=== PATIENT | male | born 2000 ===

== ENCOUNTER 2024-09-11 19:37 | Emergency (ER) | payer SELFPAY ==
[2024-09-11] VITALS (15 sets, daily range): BP systolic 114–149; BP diastolic 79–92; PULSE 66–101; TEMP 36.8; O2SAT 99; BMI 29.8
--- NOTE | 2024-09-11 19:56 | ECG_ITS ---
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 Measurements Intervals [place] Rate: 101 P: 61 TN: 166 QRS: 88 QRSD: 96 T: 34 QT: 384 QTc: 442 Interpretive Statements 1120 Sinus tachycardia with Marked sinus arrhythmia 4068 Nonspecific Twave abnormality 9140 abnormal rhythm ECG No previous ECG available for comparison Electronically Signed On 09-12-2024 6:49:58 EST by YAHAIRA EDWARDS M.D.
--- NOTE | 2024-09-11 20:55 | ED.GENADUL1 ---
Documented by User: IDALIA Vanegas 09/11/24 21:43 HPI HPI - General Adult General Chief complaint: Chest Pain Stated complaint: CHEST PAINS Time Seen by Provider: 09/11/24 20:43 Source: patient Mode of arrival: walk-in Limitations: no limitations History of Present Illness HPI narrative: Patient is a 24-year-old male who presents to the emergency department for evaluation of chest tightness that began 2 hours prior to arrival. He states he was walking at a grocery store locally when he developed tightness over the left anterior chest. He states the pain is worse with deep breathing. He has not had any fevers, cough, hemoptysis. He denies any extremity swelling. He has no history of coronary artery disease, cardiopulmonary issues, DVT or PE. He does not use any medications. He denies tobacco abuse. No medications taken prior to arrival. He has no abdominal pain, nausea or vomiting. Related Data Allergies Allergy/AdvReac Type Severity Reaction Status Date / Time No Known Drug Allergies Allergy Verified 09/11/24 19:48 Opioid HPI Opioid Management Most Recent Opioid Data: No Data to Display Review of Systems ROS Constitutional Denies: fever or chills Ears, nose, mouth, and throat Denies: throat pain or nasal congestion Cardiovascular Reports: chest pain Respiratory Denies: shortness of breath or cough Gastrointestinal Denies: nausea or vomiting Musculoskeletal Denies: back pain or neck pain Integumentary/Breast Denies: rash Neurological Denies: numbness in extremities or weakness in extremities Hematologic/Lymphatic Denies: easy bruising or easy bleeding [facility] Social History Little interest or pleasure in doing things: not at all Feeling down, depressed, or hopeless: not at all Exam Narrative Exam Narrative: Gen.: Awake, alert, in no distress Head: Normocephalic, atraumatic ENT: Moist mucous membranes Respiratory: No respiratory distress, lungs clear bilaterally Cardio: Regular rate and rhythm Gastrointestinal: Abdomen is soft, nondistended and nontender to palpation Extremities: Moves extremities equally, no pedal edema Psych: Normal mood and affect Neuro: No focal neuro deficit Skin: Warm, dry, intact Constitutional Vital Signs, click to edit/add: Last Vital Signs Temp 98.2 F 09/11/24 19:48 Pulse 78 09/11/24 21:50 Resp 18 09/11/24 21:50 BP 139/92 H 09/11/24 21:30 Pulse Ox 99 09/11/24 19:50 O2 Del Method Room Air 09/11/24 19:48 Course Vital Signs Vital signs: Vital Signs Temperature 98.2 F 09/11/24 19:48 Pulse Rate 82 09/11/24 19:48 Blood Pressure 145/83 H 09/11/24 19:48 Pulse Oximetry 99 09/11/24 19:48 Oxygen Delivery Method Room Air 09/11/24 19:48 Temperature 98.2 F 09/11/24 19:48 Pulse Rate 78 09/11/24 21:50 Respiratory Rate 18 09/11/24 21:50 Blood Pressure 139/92 H 09/11/24 21:30 Pulse Oximetry 99 09/11/24 19:50 Oxygen Delivery Method Room Air 09/11/24 19:48 Medical Decision Making MDM Narrative Medical decision making narrative: 2142: This patient has a PERC score of 0 and is hemodynamically stable. Treated with Toradol for pleuritic type pain, EKG is unremarkable and labs are pending. Case is turned over to attending physician for disposition after results. SHARED APC VISIT, PHYSICIAN ATTESTATION: [id number] I performed a substantive part of the MDM during the patient?s E/M visit. I personally evaluated and examined the patient. I personally made or approved the documented management plan and acknowledge its risk of complications. Medical Records Medical records reviewed: Yes I reviewed the patient's medical records Lab Data Lab results reviewed: Yes I reviewed the patient's lab results Labs: Lab Results 09/11/24 Range/Units 21:12 WBC 9.9 (4.0-11.0) 10^3/uL RBC 5.52 (4.70-6.10) 10^6/uL Hgb 16.5 (14.0-18.0) g/dL Hct 48.3 (42.0-54.0) % MCV 87.5 (80.0-94.0) fL MCH 29.9 (25.9-34.0) pg MCHC 34.2 (29.9-35.2) g/dL RDW 11.7 (11.0-15.0) % Plt Count 196 (150-450) 10^3/uL MPV 10.2 (9.5-13.5) fL Neut % (Auto) 63.6 (43.0-75.0) % Lymph % (Auto) 28.8 (20.5-60.0) % [place] % (Auto) 5.9 (1.7-12.0) % Eos % (Auto) 1.1 (0.9-7.0) % Baso % (Auto) 0.3 (0.2-2.0) % Neut # (Auto) 6.3 (1.4-6.5) 10^3/uL Lymph # (Auto) 2.9 (1.2-3.8) 10^3/uL [place] # (Auto) 0.6 (0.3-0.8) 10^3/uL Eos # (Auto) 0.1 (0.0-0.7) 10^3/uL Baso # (Auto) 0.0 (0.0-0.1) 10^3/uL Abs Immat Gran (auto) 0.03 (0.00-0.03) 10^3/uL Imm/Tot Granulo (auto) 0.3 (0.0-0.5) % PT 12.4 H (9.0-11.6) sec INR 1.19 Sodium 141 (136-145) mmol/L Potassium 3.8 (3.5-5.1) mmol/L Chloride 103 (98-107) mmol/L Carbon Dioxide 28.4 (21.0-32.0) mmol/L Anion Gap 13.4 BUN 11.0 (7.0-18.0) mg/dL Creatinine 1.29 (0.70-1.30) mg/dL Est GFR ( Amer) >60 (>=60 mL/min/1.73m^2) Est GFR (Non-Af Amer) >60 (>=60 mL/min/1.73m^2) BUN/Creatinine Ratio 8.5 Glucose 105 (74-106) mg/dL Calcium 9.3 (8.5-10.1) mg/dL Total Bilirubin 0.5 (0.2-1.0) mg/dL AST 16 (15-37) U/L ALT 34 (16-63) U/L Alkaline Phosphatase 106 (46-116) U/L Troponin I High Sens <4.0 L (4.0-76.1) pg/mL Total Protein 7.8 (6.4-8.2) g/dL Albumin 4.3 (3.4-5.0) g/dL Globulin 3.5 g/dL Albumin/Globulin Ratio 1.2 Lipase 27.0 (16.0-77.0) U/L TSH 1.482 (0.358-3.740) uIU/mL ECG Data Attestation: I personally reviewed and interpreted this ECG as follows: (Normal sinus rhythm at a rate of 101, sinus arrhythmia, no acute ST elevation or ectopy. EKG reviewed by attending physician.) Discharge Plan Discharge Chief Complaint: Chest Pain Clinical Impression: Chest pain Patient Disposition: Home, Self-Care Time of Disposition Decision: 22:04 Print Language: Ecuadorean Instructions: Chest Pain (ED) Referrals: Praveen Victor MD [Primary Care Provider] - 1 week Documented by User: Vinay Duenas 09/11/24 22:04 HPI HPI - General Adult General Chief complaint: Chest Pain Stated complaint: CHEST PAINS Time Seen by Provider: 09/11/24 20:43 Related Data Allergies Allergy/AdvReac Type Severity Reaction Status Date / Time No Known Drug Allergies Allergy Verified 09/11/24 19:48 Opioid HPI Opioid Management Most Recent Opioid Data: No Data to Display PFSH PFSH Social History Little interest or pleasure in doing things: not at all Feeling down, depressed, or hopeless: not at all Exam Constitutional Vital Signs, click to edit/add: Last Vital Signs Temp 98.2 F 09/11/24 19:48 Pulse 78 09/11/24 21:50 Resp 18 09/11/24 21:50 BP 139/92 H 09/11/24 21:30 Pulse Ox 99 09/11/24 19:50 O2 Del Method Room Air 09/11/24 19:48 Course Vital Signs Vital signs: Vital Signs Temperature 98.2 F 09/11/24 19:48 Pulse Rate 82 09/11/24 19:48 Blood Pressure 145/83 H 09/11/24 19:48 Pulse Oximetry 99 09/11/24 19:48 Oxygen Delivery Method Room Air 09/11/24 19:48 Temperature 98.2 F 09/11/24 19:48 Pulse Rate 78 09/11/24 21:50 Respiratory Rate 18 09/11/24 21:50 Blood Pressure 139/92 H 09/11/24 21:30 Pulse Oximetry 99 09/11/24 19:50 Oxygen Delivery Method Room Air 09/11/24 19:48 Medical Decision Making MDM Narrative Medical decision making narrative: 2142: This patient has a PERC score of 0 and is hemodynamically stable. Treated with Toradol for pleuritic type pain, EKG is unremarkable and labs are pending. Case is turned over to attending physician for disposition after results. SHARED APC VISIT, PHYSICIAN ATTESTATION: [id number] I performed a substantive part of the MDM during the patient?s E/M visit. I personally evaluated and examined the patient. I personally made or approved the documented management plan and acknowledge its risk of complications. Attending physician note -patient's lab tests were unremarkable including negative troponin. He is PERC 0 and chest x-ray is unremarkable. Patient formed of results and discharged home. - DO Leobardo Lab Data Labs: Lab Results 09/11/24 Range/Units 21:12 WBC 9.9 (4.0-11.0) 10^3/uL RBC 5.52 (4.70-6.10) 10^6/uL Hgb 16.5 (14.0-18.0) g/dL Hct 48.3 (42.0-54.0) % MCV 87.5 (80.0-94.0) fL MCH 29.9 (25.9-34.0) pg MCHC 34.2 (29.9-35.2) g/dL RDW 11.7 (11.0-15.0) % Plt Count 196 (150-450) 10^3/uL MPV 10.2 (9.5-13.5) fL Neut % (Auto) 63.6 (43.0-75.0) % Lymph % (Auto) 28.8 (20.5-60.0) % [place] % (Auto) 5.9 (1.7-12.0) % Eos % (Auto) 1.1 (0.9-7.0) % Baso % (Auto) 0.3 (0.2-2.0) % Neut # (Auto) 6.3 (1.4-6.5) 10^3/uL Lymph # (Auto) 2.9 (1.2-3.8) 10^3/uL [place] # (Auto) 0.6 (0.3-0.8) 10^3/uL Eos # (Auto) 0.1 (0.0-0.7) 10^3/uL Baso # (Auto) 0.0 (0.0-0.1) 10^3/uL Abs Immat Gran (auto) 0.03 (0.00-0.03) 10^3/uL Imm/Tot Granulo (auto) 0.3 (0.0-0.5) % PT 12.4 H (9.0-11.6) sec INR 1.19 Sodium 141 (136-145) mmol/L Potassium 3.8 (3.5-5.1) mmol/L Chloride 103 (98-107) mmol/L Carbon Dioxide 28.4 (21.0-32.0) mmol/L Anion Gap 13.4 BUN 11.0 (7.0-18.0) mg/dL Creatinine 1.29 (0.70-1.30) mg/dL Est GFR ( Amer) >60 (>=60 mL/min/1.73m^2) Est GFR (Non-Af Amer) >60 (>=60 mL/min/1.73m^2) BUN/Creatinine Ratio 8.5 Glucose 105 (74-106) mg/dL Calcium 9.3 (8.5-10.1) mg/dL Total Bilirubin 0.5 (0.2-1.0) mg/dL AST 16 (15-37) U/L ALT 34 (16-63) U/L Alkaline Phosphatase 106 (46-116) U/L Troponin I High Sens <4.0 L (4.0-76.1) pg/mL Total Protein 7.8 (6.4-8.2) g/dL Albumin 4.3 (3.4-5.0) g/dL Globulin 3.5 g/dL Albumin/Globulin Ratio 1.2 Lipase 27.0 (16.0-77.0) U/L TSH 1.482 (0.358-3.740) uIU/mL Imaging Data Chest x-ray: Attestation: I personally reviewed and interpreted this imaging study as follows: My impression: nad -no pneumothorax, pneumonia, infiltrative process or effusion ECG Data Interpretation: EKG interpretation: Emergency Department physician interpretation. Sinus tachycardia at 101 bpm. Normal axis, normal intervals and nonspecific T wave abnormality without ST segment elevation or depression. Discharge Plan Discharge Chief Complaint: Chest Pain Clinical Impression: Chest pain Patient Disposition: Home, Self-Care Time of Disposition Decision: 22:04 Print Language: Ecuadorean Instructions: Chest Pain (ED) Referrals: Praveen Victor MD [Primary Care Provider] - 1 week
[2024-09-11] MEDS: KETOROLAC TROMETHAMINE 10 MG TABLET PO (21:05)
[2024-09-11 21:23] LABS: Basophils Percent Auto 0.3 % (0.2-2.0); Eosinophils Absolute Auto 0.1 10^3/uL (0.0-0.7); Eosinophils Percent Auto 1.1 % (0.9-7.0); Hematocrit 48.3 % (42.0-54.0); Hemoglobin 16.5 g/dL (14.0-18.0); Immature Granulocytes Abs Auto 0.03 10^3/uL (0.00-0.03); Immature Granulocytes Pct Auto 0.3 % (0.0-0.5); Lymphocytes Absolute Auto 2.9 10^3/uL (1.2-3.8); Lymphocytes Percent Auto 28.8 % (20.5-60.0); Mean Corpuscular HGB Conc 34.2 g/dL (29.9-35.2); Mean Corpuscular Hemoglobin 29.9 pg (25.9-34.0); Mean Corpuscular Volume 87.5 fL (80.0-94.0); Mean Platelet Volume 10.2 fL (9.5-13.5); Monocytes Absolute Auto 0.6 10^3/uL (0.3-0.8); Monocytes Percent Auto 5.9 % (1.7-12.0); Neutrophils Absolute Auto 6.3 10^3/uL (1.4-6.5); Neutrophils Percent Auto 63.6 % (43.0-75.0); Platelet Count 196 10^3/uL (150-450); Red Blood Count 5.52 10^6/uL (4.70-6.10); Red Cell Distribution Width 11.7 % (11.0-15.0); White Blood Count 9.9 10^3/uL (4.0-11.0)
[2024-09-11 21:36] LABS: INR 1.19; Prothrombin Time 12.4 sec (9.0-11.6)
[2024-09-11 21:44] LABS: Alanine Aminotransferase 34 U/L (16-63); Albumin Globulin Ratio 1.2; Albumin Level 4.3 g/dL (3.4-5.0); Alkaline Phosphatase 106 U/L (46-116); Anion Gap 13.4; Aspartate Amino Transferase 16 U/L (15-37); BUN Creatinine Ratio 8.5; Bilirubin Total 0.5 mg/dL (0.2-1.0); Calcium 9.3 mg/dL (8.5-10.1); Carbon Dioxide 28.4 mmol/L (21.0-32.0); Chloride 103 mmol/L (98-107); Estimated GFR (African America >60 (>=60 mL/min/1.73m^2); Estimated GFR (Non-African Ame >60 (>=60 mL/min/1.73m^2); Globulin 3.5 g/dL; Glucose 105 mg/dL (74-106); Potassium 3.8 mmol/L (3.5-5.1); Sodium 141 mmol/L (136-145); Thyroid Stimulating Hormone 1.482 uIU/mL (0.358-3.740); Total Protein 7.8 g/dL (6.4-8.2); Troponin I High Sensitivity <4.0 pg/mL (4.0-76.1)
== END 2024-09-11 22:19 | disposition home or self-care (01) ==
PROVIDERS: Physician Assistant; Emergency Provider Emergency Medicine; PCP Family Medicine
DX: R07.9 Chest pain, unspecified (principal)
CPT/HCPCS: 36415; 71045; 80053; 83690; 84443; 84484; 85025; 85610; 93005; 99285